=== PATIENT | male | born 1965 | race Hispanic/Latino ===

== ENCOUNTER 2024-04-02 16:21 | Outpatient (CLI) | payer BC | END 2024-04-02 16:22 | disposition home or self-care (01) | LOC: SCSRAD 16:21 | PROVIDERS: ATTEND Nurse Practitioner Family | DX: S99.912A Unspecified injury of left ankle, initial encounter (principal); M79.89 Other specified soft tissue disorders; S82.62XA Displaced fracture of lateral malleolus of left fibula, initial encounter for closed fracture ==

== ENCOUNTER 2024-06-27 10:44 | Day surgery (SDC) | payer BC ==
[2024-06-26 12:51] VITALS: BMI 37.3
[2024-06-27] MEDS ORDERED: fentaNYL 50 mcg/mL 1 mL Vial ONE ×2 (11:59→15:03)
[2024-06-27] MEDS ORDERED: Midazolam HCl 2 mg/2 ml Vial ONE (11:59)
[2024-06-27] MEDS ORDERED: Ropivacaine 0.5% HCl/PF (150 MG/30 ML VIAL) ONE (11:59)
[2024-06-27] MEDS ORDERED: Ropivacaine 0.2% HCl/PF 20 ML ONE (11:59)
[2024-06-27] MEDS ORDERED: PROPOFOL 40 ML ONE (12:56)
[2024-06-27] MEDS ORDERED: Lidocaine 2% PF 5 ML VIAL ONE (12:57)
[2024-06-27] MEDS ORDERED: CEFAZOLIN 2 GM VIAL ONE (13:04)
[2024-06-27] MEDS ORDERED: Sodium Chloride 0.9% 100 ML ONE (13:05)
[2024-06-27] MEDS ORDERED: Dexamethasone 20 MG/5 ML VIAL ONE (13:06)
[2024-06-27] MEDS ORDERED: Ondansetron PF 4 MG/2 ML Vial ONE (13:06)
[2024-06-27] MEDS ORDERED: fentaNYL PF 100 MCG/2 ML SYRINGE ONE (13:06)
[2024-06-27] MEDS ORDERED: Sodium Chloride 0.9% 250 ML 250 ML ONE (13:34)
== END 2024-06-27 16:49 | disposition home or self-care (01) ==
LOC: SDC 10:44
PROVIDERS: ATTEND Orthopaedic Surgery
PROC: 3E0T3BZ Introduction of Anesthetic Agent into Peripheral Nerves and Plexi, Percutaneous Approach (ICD-10-PCS; principal; 2024-06-27)
PROC: 0QSK04Z Reposition Left Fibula with Internal Fixation Device, Open Approach (ICD-10-PCS; 2024-06-27)
DX: S82.832K Other fracture of upper and lower end of left fibula, subsequent encounter for closed fracture with nonunion (principal); B19.10 Unspecified viral hepatitis B without hepatic coma; Z79.2 Long term (current) use of antibiotics; Z79.82 Long term (current) use of aspirin; Z79.899 Other long term (current) drug therapy; W18.30XD Fall on same level, unspecified, subsequent encounter
CPT/HCPCS: C1713; J1100; J2250; J2405; J2704; J2795; J3010; J7050

== ENCOUNTER 2024-09-02 16:37 | Inpatient (IN) | payer BC ==
[2024-09-02 17:19] LABS: #Basophils 0.05 10x3/uL (0.0-0.2); %Basophils 0.5 % (0.0-1.0); %Monocytes 7.7 % (0.0-10.0); %Neutrophils 77.3 % (42.0-75.0); Hematocrit 41.1 % (42.0-52.0); Hemoglobin 14.3 g/dL (14.0-18.0); Mean Corpuscular HGB CONC 34.8 g/dL (32.0-36.0); Mean Corpuscular Hemoglobin 30.3 pg (27.0-31.0); Mean Corpuscular Volume 87.1 fL (78.0-98.0); Mean Platelet Volume 10.3 fL (7.4-10.4); Platelet Count 170 10x3/uL (130-400); RBC Distribution Width 13.8 % (11.5-14.5); Red Blood Cell (RBC) Count 4.72 mill/uL (4.70-6.10)
[2024-09-02 17:35] LABS: INR-International Normal Ratio 1.3; Prothrombin Time 16.1 sec (12.0-14.7)
[2024-09-02 17:36] LABS: PTT 24.7 sec (22.9-36.1)
[2024-09-02 17:39] LABS: Troponin I 0.042 ng/mL (< 0.028)
[2024-09-02 17:43] LABS: ALT (SGPT) 28 U/L (Less than 45); AST (SGOT) 32 U/L (11-34); Albumin 3.9 g/dL (3.1-4.5); Alkaline Phosphatase 47 U/L (40-110); Anion Gap 13 mmol/L (10-20); BUN (Urea Nitrogen) 42 mg/dL (8.4-25.7); Bilirubin, Total 1.8 mg/dL (0.3-1.2); Calc. Creatinine Clearance 0 mL/min (70-130); Calcium 9.4 mg/dL (7.8-10.44); Carbon Dioxide 23 mmol/L (22-29); Chloride 112 mmol/L (98-107); Estimated GFR 105; Globulin 3.1 g/dL (2.4-3.5); Glucose 161 mg/dL (70-105); Potassium 4.5 mmol/L (3.5-5.1); Sodium 143 mmol/L (136-145)
[2024-09-02] MEDS ORDERED: Pantoprazole 40 MG VIAL ONE (17:49)
[2024-09-02] MEDS ORDERED: cefTRIAXone (ROCEPHIN) 2 GM VIAL ONE (17:52)
[2024-09-02] MEDS ORDERED: Sodium Chloride 0.9% 100 ML ONE (17:52)
[2024-09-02] MEDS ORDERED: Ondansetron ODT 4 MG TAB PO PRN (18:53)
[2024-09-02] MEDS ORDERED: Ondansetron PF 4 MG/2 ML Vial IVP PRN (18:53)
[2024-09-02] MEDS ORDERED: Pantoprazole 80 MG, Admixture Fee 1 EACH in Sodium Chloride 0.9% 100 ML IVPB SCH (19:00)
[2024-09-02 21:47] VITALS: BMI 38.0
[2024-09-02 22:42] LABS: Troponin I 0.115 ng/mL (< 0.028)
[2024-09-02] MEDS: Melatonin 3 MG TAB PO PRN (22:44)
[2024-09-02] MEDS: Pantoprazole 80 MG, Admixture Fee 1 EACH in Sodium Chloride 0.9% 100 ML IVPB SCH (22:45)
[2024-09-03 02:37] LABS: #Basophils Less than 0.03 10x3/uL (0.0-0.2); #Eosinophils Less than 0.03 10x3/uL (0.0-0.7); %Eosinophils 0.1 % (0.0-10.0); %Lymphocytes 13.3 % (21.0-51.0); %Monocytes 1.5 % (0.0-10.0); %Neutrophils 84.7 % (42.0-75.0); Hematocrit 35.8 % (42.0-52.0); Hemoglobin 12.2 g/dL (14.0-18.0); Mean Corpuscular HGB CONC 34.1 g/dL (32.0-36.0); Mean Platelet Volume 10.6 fL (7.4-10.4); Platelet Count 121 10x3/uL (130-400); Red Blood Cell (RBC) Count 4.07 mill/uL (4.70-6.10)
[2024-09-03 02:44] LABS: Anion Gap 17 mmol/L (10-20); BUN (Urea Nitrogen) 29 mg/dL (8.4-25.7); Calc. Creatinine Clearance 183 mL/min (70-130); Calcium 8.9 mg/dL (7.8-10.44); Carbon Dioxide 15 mmol/L (22-29); Chloride 115 mmol/L (98-107); Estimated GFR 105; Glucose 243 mg/dL (70-105); Potassium 4.5 mmol/L (3.5-5.1); Sodium 142 mmol/L (136-145)
[2024-09-03 02:49] LABS: Troponin I 0.066 ng/mL (< 0.028)
[2024-09-03] MEDS ORDERED: PROPOFOL 20 ML ONE ×2 (09:42→10:09)
[2024-09-03] MEDS ORDERED: Lidocaine 1% PF 5 ML VIAL ONE (09:44)
[2024-09-03] MEDS ORDERED: Glycopyrrolate 0.2 MG/ML 5 ML SYRINGE ONE (10:08)
[2024-09-03] MEDS: Emtricitabine/Tenofovir 200-300 MG TAB PO SCH (13:34)
[2024-09-03] MEDS: Pantoprazole 40 MG VIAL IVP SCH ×2 (13:34→21:28)
[2024-09-03] MEDS: Escitalopram Oxalate 10 mg Tablet PO SCH (13:34)
[2024-09-03] MEDS: Octreotide Acetate 1,250 MCG in Sodium Chloride 0.9% 250 ML 250 ML IVPB SCH (14:47)
[2024-09-03] MEDS: FLU (Fluarix Triv) TS24-25(6MOS UP)/PF 45 MCG/0.5 ML Syringe IM ONE (14:53)
[2024-09-03] MEDS: Acetaminophen 325 MG TAB PO PRN (14:56)
[2024-09-03] MEDS: cefTRIAXone\\ROCEPHIN 1 GM in Sodium Chloride 0.9% 100 ML IVPB SCH (17:12)
[2024-09-04 05:17] LABS: #Basophils 0.03 10x3/uL (0.0-0.2); %Basophils 0.4 % (0.0-1.0); %Lymphocytes 14.1 % (21.0-51.0); %Monocytes 9.4 % (0.0-10.0); %Neutrophils 74.7 % (42.0-75.0); Hematocrit 30.1 % (42.0-52.0); Hemoglobin 10.2 g/dL (14.0-18.0); Mean Corpuscular HGB CONC 33.9 g/dL (32.0-36.0); Mean Corpuscular Hemoglobin 30.4 pg (27.0-31.0); Mean Corpuscular Volume 89.9 fL (78.0-98.0); Mean Platelet Volume 10.4 fL (7.4-10.4); Platelet Count 118 10x3/uL (130-400); RBC Distribution Width 14.2 % (11.5-14.5); Red Blood Cell (RBC) Count 3.35 mill/uL (4.70-6.10)
[2024-09-04 05:46] LABS: Anion Gap 12 mmol/L (10-20); BUN (Urea Nitrogen) 22 mg/dL (8.4-25.7); Calc. Creatinine Clearance 180 mL/min (70-130); Calcium 8.1 mg/dL (7.8-10.44); Carbon Dioxide 23 mmol/L (22-29); Chloride 112 mmol/L (98-107); Estimated GFR 105; Glucose 141 mg/dL (70-105); Potassium 3.7 mmol/L (3.5-5.1); Sodium 143 mmol/L (136-145)
[2024-09-04 11:58] VITALS: BP 139/71; TEMP 98.2
== END 2024-09-04 16:05 | disposition home or self-care (01) | DRG 432 ==
LOC: ERS 16:37 → OBS 18:40 → OBSVTOIN 18:40
PROVIDERS: ADMIT Internal Medicine; ATTEND Internal Medicine
PROC: 0DB78ZX Excision of Stomach, Pylorus, Via Natural or Artificial Opening Endoscopic, Diagnostic (ICD-10-PCS; principal; 2024-09-03)
PROC: 06L38CZ Occlusion of Esophageal Vein with Extraluminal Device, Via Natural or Artificial Opening Endoscopic (ICD-10-PCS; 2024-09-03)
DX: K74.69 Other cirrhosis of liver (principal); I85.11 Secondary esophageal varices with bleeding; K92.2 Gastrointestinal hemorrhage, unspecified; B19.10 Unspecified viral hepatitis B without hepatic coma; I5A Non-ischemic myocardial injury (non-traumatic); D62 Acute posthemorrhagic anemia; K76.6 Portal hypertension; K31.89 Other diseases of stomach and duodenum; E66.9 Obesity, unspecified; Z98.890 Other specified postprocedural states
CPT/HCPCS: 36415; 80048; 80053; 84484; 85025; 85610; 85730; 86850; 86900; 86901; 88305; 93005; 96365; 96368; 96375; J0696; J2354; J2470; J2704; J7050